=== PATIENT | male | born 1975 | race Caucasian/White ===

== ENCOUNTER 2018-12-26 12:50 | Emergency (ER) | payer OTHER ==
[2018-12-26] MEDS ORDERED: BUFFERED LIDOCAINE 10 ML SYRINGE SUBQ STA (14:02)
--- NOTE | 2018-12-26 14:03 | ED Physician Documentation ---
PD HPI HEENT FB - Chief complaint Chief Complaint: Heent - History obtained from History obtained from: Patient - History of Present Illness Timing - onset: Other (He bit his lip a few weeks ago and now has a hard painful lump on the left lower lip without drainage.) Review of Systems Constitutional: denies: Fever, Chills Throat: reports: Reviewed and negative Cardiac: reports: Reviewed and negative PD PAST MEDICAL HISTORY - Past Medical History Past Medical History: No - Past Surgical History Past Surgical History: No - Present Medications Home Medications: Ambulatory Orders Medication Instructions Recorded Confirmed No Known Home Medications 12/26/18 12/26/18 - Allergies Allergies/Adverse Reactions: Allergies Allergy/AdvReac Type Severity Reaction Status Date / Time No Known Drug Allergies Allergy Verified 12/26/18 13:02 - Social History Does the pt smoke?: No Smoking Status: Never smoker Does the pt drink ETOH?: No Does the pt have substance abuse?: No - Immunizations Immunizations are current?: Yes PD ED PE NORMAL - Vitals Vital signs reviewed: Yes - General General: Alert and oriented X 3, No acute distress - HEENT HEENT: Other (On the mucosal surface of the left lower lip there is a pointed fluctuant mass consistent with either mucocele or an abscess. There is no cellulitis.) - Neck Neck: Supple, no meningeal sign, No bony TTP - Neuro Neuro: Alert and oriented X 3, Normal speech Results - Vitals Vitals: Vital Signs - 24 hr 12/26/18 13:00 Temperature 36.5 C Heart Rate 102 H Respiratory 18 Rate Blood Pressure 153/88 H O2 Saturation 98 Oxygen O2 Source Room air Procedures - General procedure General procedure: A mandibular nerve block was done on the left using external approach with buffered lidocaine and excellent anesthesia. After that a small incision was made on the inside of the lip and it was clear that the contents were consistent with a mucocele, not an abscess. Departure - Departure Disposition: 01 Home, Self Care Clinical Impression: Mucocele of lip Condition: Good Record reviewed to determine appropriate education?: Yes Comments: As discussed, this may be a recurrent issue. If it recurs and you just want it drained again you can come here any time but otherwise you should follow-up with your physician if it becomes a recurrent issue for a referral to a plastic surgeon or a facial surgeon. There is a facial surgeon in [place], Dr. Barr. Your blood pressure was elevated today on check into the emergency department. This does not mean that you have hypertension, it is a common phenomenon to come to the emergency department and have elevated blood pressure. I recommend that you see your primary care physician within the week to have it rechecked when you are feeling better.
[2018-12-26 14:44] VITALS: BP 141/85
== END 2018-12-26 14:54 | disposition home or self-care (01) ==
LOC: ED 12:50
DX: K13.79 Other lesions of oral mucosa (principal); R03.0 Elevated blood-pressure reading, without diagnosis of hypertension
CPT/HCPCS: 64400; 99282; 99283

== ENCOUNTER 2022-07-02 20:51 | Outpatient (CLI) | payer OTHER | END 2022-07-02 20:52 | disposition home or self-care (01) | LOC: SC 20:51 | PROVIDERS: ATTEND Nurse Practitioner Family | DX: R06.83 Snoring (principal); G47.8 Other sleep disorders; R06.81 Apnea, not elsewhere classified | CPT/HCPCS: 95806; 95810 ==

== ENCOUNTER 2022-07-15 10:43 | Outpatient (CLI) | payer OTHER ==
[2022-07-15 11:30] VITALS: BP 118/80
--- NOTE | 2022-07-15 11:30 | SLEEP CARE CONSULTATION ---
Information from patient questionnaire entered by Danyell Herron. I have reviewed and concur with the information entered by Danyell Herron. This document represents the service I personally performed and the decisions made by , Teodora Ramirez ARNP. History of Present Illness Service Date and Time: 07/15/2022 1043 Initial Shickley Sleepiness Scale score: 13 (06/09/2022) Current Shickley Sleepiness Scale score: 13 (07/15/22) Additional HPI information: CATHIE SOUZA returns for follow up and results of the recently performed polysomnography. The patient was informed of the following findings: No significant sleep disordered breathing with an average AHI of 2.5 and ulises oxygen saturation of 87%. Patient only slept supine during the study. I explained the pathophysiology behind obstructive sleep apnea. Patient does not have sleep apnea and was advised how weight gain could increase the risk of developing sleep apnea in the future. Patient has Moderate to loud snoring. Snoring can be reduced by weight loss. Weight loss is best achieved with diet consult. Patient instructed to contact PCP for referral. Snoring can also be treated with an oral appliance from a dentist. Advised to check insurance coverage. In addition, an ENT evaluation can be do to see if other treatment is indicated. Patient does not drink alcohol. Patient was cautioned about risks of drowsy driving until sleepiness symptoms resolve. Patient denies drowsy driving. Sleep Study - Results Type of Sleep Study: Polysomnography (DONE 07/02/22) Prior sleep studies: No Polysomnography/Home Sleep Study results: IMPRESSION: The quality of the study is good. The patient had normal sleep efficiency. The sleep architecture was relatively normal as well considering the first night effect. Respiratory monitoring showed no significant sleep disordered breathing (AHI = 2.5) or hypoxia (ulises oxygen saturation of 87%) and only 0.1% to the total sleep time was spent with oxygen saturation below 90%. The patient slept only in supine position (supine AHI = 2.5; nonsupine = 0.00). Snore was moderate to loud in intensity. There was no significant periodic leg movement of sleep. Cardiac rhythm was normal sinus rhythm without significant arrhythmia. No abnormal behavior (parasomnia) observed during the night. Allergies and Home Medications Home medication list reviewed: Yes (no changes) Allergy and home medication list: Allergies No Known Drug Allergies Allergy (Verified 12/26/18 13:02) Review of Systems Review of systems same as previous: Yes (no changes) Physical Exam Vital signs obtained and entered by: KODY GODOY Blood Pressure: 118/80 (right arm) Cuff size: regular Heart Rate: 74 O2 Saturation: 94 Height: 5 ft 10 in Weight: 158 lb Body Mass Index: 22.6 BMI Classification: Healthy weight Impression and Plan Snoring but no significant sleep disordered breathing. Patient advised that often weight loss will reduce snoring as well as apnea risk but since he is at a healthy weight this does not apply to him. He was advised to maintain a healthy weight. An oral appliance can also be used for snoring. This would require a dental consultation. Patient cautioned not to use other online appliances as can cause bite issues. A list of accredited dentists in [facility] who make oral appliances is available in the office. Patient is advised to check if insurance will cover. An ENT consult can also be helpful to determine if any other treatment is an option. * Maintain a healthy weight * Return as needed for follow up. Counseling Topics: Weight control Visit Type: In Office Time Spent with Patient (minutes): 10 Provider Statement: I spent 100% of the Face to Face Visit with the patient with greater than 50% spent counseling the patient and coordination of care.
== END 2022-07-15 10:44 | disposition home or self-care (01) ==
LOC: SC 10:43
PROVIDERS: ATTEND Nurse Practitioner Family
DX: R06.83 Snoring (principal)
CPT/HCPCS: 99212

== ENCOUNTER 2022-08-28 11:07 | Outpatient (CLI) | payer OTHER ==
--- NOTE | 2022-08-30 10:12 | MRI Report ---
PROCEDURE: KNEE WO - RT INDICATIONS: PAIN IN RIGHT KNEE TECHNIQUE: Noncontrast sagittal PD fast spin echo and T2 fast spin echo with fat saturation, sagittal 3-D gradie nt sequence with fat saturation; coronal T1 spin echo and PD fast spin echo with fat saturation, and axial PD fast spin echo with fat saturation through the knee. COMPARISON: None. FINDINGS: Image quality: Excellent. Menisci: Signal abnormality involving posterior horn of medial meniscus which does not extend to nancy culating surface to meet the MR criteria of focal meniscal tear. Lateral meniscus is intact. The meni scal root ligaments appear intact. Cruciate ligaments: Sprain/low-grade intrasubstance partial thickness tear involving anterior cruciat e ligament is seen. No ACL rupture. PCL is intact. Medial structures: The medial collateral ligament appears intact. The posterior oblique ligament, s emimembranosus tendon insertions, and oblique popliteal ligament, and meniscocapsular junction appear intact. Visualized portions of the pes anserinus tendons appear normal. No abnormal bursal fluid. Lateral structures: The lateral collateral ligament, long and short heads of the biceps femoris tend on appear intact. The popliteus tendon appears normal; the popliteofibular ligament appears intact. Iliotibial band appears normal. Anterior structures: The quadriceps and patellar tendons appear intact. Patellar alignment is skip l. No femoral trochlear dysplasia or ventral trochlear prominence. No edema in the infrapatellar fa t pad. Bones and cartilage: No bone marrow contusions or fractures. 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 Joint space: There is small knee joint fluid. No Krause's cyst. Normal appearing synovial plicae ar e incidentally noted. IMPRESSION: 1. Suggestion of degenerative signal within posterior horn of medial meniscus. No MR evidence of foca l meniscal tear. 2. Sprain/low-grade partial thickness tear involving anterior cruciate ligament. No ACL rupture. PCL is intact. 3. 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 No fracture or dislocation. Reviewed by: Reese Garcia MD on 08/30/2022 10:11 AM PDT Approved by: Reese Garcia MD on 08/30/2022 10:11 AM PDT Station ID: [id number]
== END 2022-08-28 11:08 | disposition home or self-care (01) ==
LOC: DI 11:07
PROVIDERS: ATTEND Orthopaedic Surgery
DX: S83.511A Sprain of anterior cruciate ligament of right knee, initial encounter (principal); M94.261 Chondromalacia, right knee